=== PATIENT | female | born 1995 | race Caucasian/White ===

== ENCOUNTER 2023-11-28 06:27 | Day surgery (SDC) | payer BC, SELFPAY ==
[2023-11-28] VITALS (9 sets, daily range): BP systolic 128–153; BP diastolic 87–100; BMI 40.1
[2023-11-28] MEDS: NORMOSOL-R 1000 IV (10:40)
[2023-11-28] MEDS: DILAUDID 0.25 MG IV (12:49)
[2023-11-28] MEDS: ROXICODONE ORAL SOLUTION 5 MG PO (13:58)
== END 2023-11-28 14:35 | disposition home or self-care (01) ==
LOC: SDS 06:27
PROVIDERS: ATTENDING PHYSICIAN Otolaryngology
DX: J03.91 Acute recurrent tonsillitis, unspecified (principal); F17.290 Nicotine dependence, other tobacco product, uncomplicated
CPT/HCPCS: 42826; 88304

== ENCOUNTER → 2024-10-05 10:19 | Outpatient (REF) | payer OTHER, SELFPAY | LOC: HWRAD 10:19 | PROVIDERS: ATTENDING PHYSICIAN Nurse Practitioner Women's Health; FAMILY PHYSICIAN Family Medicine | DX: N83.201 Unspecified ovarian cyst, right side (principal) | CPT/HCPCS: 76830; 76856 ==